=== PATIENT | female | born 1955 | race Caucasian/White ===

== ENCOUNTER 2017-03-17 19:57 | Emergency (ER) | payer BC ==
--- NOTE | ~2017-03-17 | EKG ---
PATIENT: VISHNU ASIF UNIT #: [id number] Ventricular Rate: 61 BPM Atrial Rate: 61 BPM P-R Interval: 260 ms QRS Duration: 80 ms Q-T Interval: 404 ms QTC Calculation(Bezet): 406 ms P [place]: 81 degrees Calculated R [place]: -39 degrees Calculated T [place]: 32 degrees Diagnosis Line: Sinus rhythm with marked sinus arrhythmia with 1st Diagnosis Line: degree A-V block Diagnosis Line: Left axis deviation Diagnosis Line: Low voltage QRS Diagnosis Line: Abnormal ECG Diagnosis Line: No previous ECGs available Diagnosis Line: Confirmed by KITTY COBB MD ([id number]) on 03/18/2017 Diagnosis Line: 8:07:36 PM INTERPRETING MD: REZA MEJIAS
--- NOTE | ~2017-03-17 | CR72 ---
[facility] A Service of [facility] & [facility] RADIOLOGY TEXT RESULTS PATIENT: VISHNU ASIF LOCATION: [facility] : 55 UNIT #: [id number] AGE: [address]: Donnie tSarr MD SEX: F ORDER DR: [id number] [facility] [address] [place], [place] [address] [id number] E MR#: [id number] Acc #: [id number] NAME: VISHNU ASIF. : 1955 SEX: F STUDY DATE/TIME: 03/17/2017 22:34 UNIT: [facility] ROOM: STUDY DESCRIPTION: CR Chest Single View Portable Attending Physician: Donnie Starr M.D. Ordering Physician: Donnie Starr M.D. Primary Care Physician: Christal Rubio M.D. MEDICAL IMAGING REPORT This report is preliminary unless electronic signature is present EXAM Portable chest HISTORY Chest pain. Shortness of air for 2 days. FINDINGS Cardiac size and pulmonary vascularity are near the upper limits of normal. No focal airspace infiltrates or effusions. Mild linear atelectasis or scarring in the left midlung. Mild hypertrophic changes in the lower thoracic spine. IMPRESSION No acute findings. No active disease. Dictated by... Marcelo Delarosa M.D. THIS IS AN ELECTRONICALLY VERIFIED REPORT Marcelo Delarosa M.D. at 03/18/2017 11:32 PM DFL/iwona TD: 03/18/2017 02:56 JOB #: [id number] MEDICAL IMAGING REPORT Page 1 of 1 COPY
[2017-03-17 22:48] LABS: POC - CKMB 2.2 ng/mL (0.0-7.9); POC - TROPONIN <0.05 ng/mL (<=0.05)
[2017-03-17 22:53] LABS: BASOPHIL# 0.1 X10e3 (0-0.3); BASOPHIL% 0.9 % (0-2.5); EOSINOPHIL# 0.3 X10e3 (0-0.7); EOSINOPHIL% 2.7 % (0.0-7.0); HEMATOCRIT 42.8 % (35.0-45.0); LYMPHOCYTE# 4.5 X10e3 (1.0-3.5); LYMPHOCYTE% 40.8 % (17.0-45.0); MEAN CELL VOLUME 91.9 FL (83-96); MEAN CORPUSCULAR HGB CONC 32.7 g/dL (30-36); MEAN PLATELET VOLUME 9.5 FL (6.5-11.5); MONOCYTE# 1.1 X10e3 (0-1.0); MONOCYTE% 9.9 % (3.0-12.0); NEUTROPHIL% 45.7 % (40-75); PLATELET COUNT 246 X10e3 (140-420); RED BLOOD COUNT 4.65 X10e (3.90-5.30); RED CELL DISTRIBUTION WIDTH 13.1 % (11.0-15.5)
[2017-03-17 22:54] LABS: DIFF IND NO
[2017-03-17 23:14] LABS: ALBUMIN SERUM 3.9 g/dL (3.5-5.0); BILIRUBIN, DIRECT 0.1 mg/dL (0.0-0.2); BILIRUBIN,INDIRECT 0.2 mg/dL (0.0-0.9); BILIRUBIN,TOTAL 0.3 mg/dL (0.2-2.0); BUN/CREATININE RATIO 18.88; CALCIUM SERUM 9.2 mg/dL (8.4-10.2); CREATININE SERUM 0.9 mg/dL (0.6-1.4); GLOM FILT RATE Estimated 69.1 mL/min (>60); POTASSIUM 4.2 mmol/L (3.5-5.1); PROTEIN TOTAL SERUM 7.5 g/dL (6.0-8.3)
[2017-03-18] LABS: POC - CKMB 1.7 ng/mL (0.0-7.9); POC - TROPONIN <0.05 ng/mL (<=0.05)
== END 2017-03-18 00:40 | disposition home or self-care (01) ==
LOC: CED 19:57
PROVIDERS: Emergency Medicine
DX: I44.1 Atrioventricular block, second degree (principal); R00.2 Palpitations; F17.210 Nicotine dependence, cigarettes, uncomplicated; Z88.1 Allergy status to other antibiotic agents; Z88.5 Allergy status to narcotic agent; Z88.8 Allergy status to other drugs, medicaments and biological substances
CPT/HCPCS: 36415; 71010; 80048; 80076; 82553; 83880; 84484; 85025; 93005; 99284